=== PATIENT | female | born 1965 | race Two or more races ===

== ENCOUNTER → 2017-03-03 | Outpatient (CLI) | payer BC | END | disposition home or self-care (01) | LOC: KCIC MAMMO 08:18 | DX: Z12.31 Encounter for screening mammogram for malignant neoplasm of breast (principal) | CPT/HCPCS: 77063; 77067 ==

== ENCOUNTER → 2018-03-29 | Outpatient (CLI) | payer BC ==
[2015-03-26 19:44] VITALS: BP 127/74
[~2018-03-29] MED LIST: ACET325T9 PO; AZIT250T6 PO; DIPH25CA58 PO; FLUT16SP2 NS; PHEN1TAB PO
--- NOTE | 2018-03-29 15:19 | KCIC ---
Bilateral digital screening mammograms with 3-D tomosynthesis: Reason for examination: Routine screening. Comparison is made to previous studies dated 03/03/2017 and 02/20/2016. Bilateral mammograms in CC and oblique projections were obtained with 2-D imaging and 3-D tomosynthesis imaging on a Siemens Inspiration unit and reviewed on the workstation. Interpretation was made with the benefit of CAD. The skin and nipples show no abnormalities. No abnormal axillary lymph nodes are seen. The breast parenchyma is extremely dense. (Breast density: Category D.) There are circumscribed nodules bilaterally. These likely represent cysts with previous history of cysts in the left breast. There are no suspicious calcifications or architectural distortion. Impression: Circumscribed nodules bilaterally which probably represent systems patient with history of left breast cyst. Recommend further evaluation with ultrasound. Your patient's mammogram demonstrates that she has dense breast tissue (breast density category C or D), which could hide abnormalities, and if she has other risk factors for breast cancer that have been identified, she might benefit from supplemental screening tests that may be suggested by you as her ordering physician. Dense breast tissue, in and of itself, is a relatively common condition. Therefore, this information is not provided to cause undue concern, but rather to raise your awareness and to promote discussion with your patient regarding the presence of other risk factors, in addition to dense breast tissue. Your patient's mammography results will be sent to her. BI-RAD Category 0: Incomplete. Needs additional imaging evaluation. "Our facility is accredited by the [employer]ammography [employer]." This patient's information has been entered into a reminder system for the patient to be notified with the results of her examination and a target date for the next mammogram. Electronically signed by: Radha Estrada MD (03/29/2018 3:14 PM) [id number]
== END | disposition home or self-care (01) ==
LOC: KCIC MAMMO 11:36
PROVIDERS: ATTEND Obstetrics & Gynecology
DX: Z12.31 Encounter for screening mammogram for malignant neoplasm of breast (principal)
CPT/HCPCS: 77063; 77067

== ENCOUNTER → 2018-04-13 | Outpatient (CLI) | payer BC ==
[2015-03-26 19:44] VITALS: BP 127/74
--- NOTE | 2018-04-13 16:36 | KCIC ---
Bilateral breast ultrasound: Reason for examination: Abnormal mammogram. Follow-up exam. Comparison is made to mammographic exam dated 03/29/2018 and previous ultrasound examination dated 02/28/2016. Bilateral whole breast ultrasound including evaluation of all 4 quadrants and the retroareolar and axillary regions of both breasts was performed. In the right breast at the 11:00 position 5 cm from the nipple, there is a 1.8 cm hypoechoic circumscribed lesion with posterior acoustic enhancement which has a slightly lobulated contour. This may represent a fibroadenoma but considering the size and lobulation, further evaluation with ultrasound-guided biopsy is recommended. In the 9:30 position 6 cm from the nipple, there is a hypoechoic circumscribed lesion in parallel orientation measuring 5.6 mm in greatest dimension which also probably represents a small fibroadenoma or fibrocystic lesion with some posterior acoustic enhancement. There is some ductal ectasia. No other cystic or solid lesions are seen. No abnormal appearing lymph nodes are seen in the right axilla. In the left breast at the 2:00 position 4 cm from the nipple, there is a hypoechoic lesion which corresponds with site of previous cyst that now contains some internal echogenicity. This may represent inspissated material but recommend further evaluation with aspiration or biopsy. In the 1:30 position 5 cm from the nipple, there is a small 5.4 mm anechoic lesion consistent with a cyst. No other cystic or solid lesions are seen. No abnormal appearing lymph nodes are seen in the axilla. IMPRESSION: Solid-appearing nodule in the right breast at the 11:00 position measuring 1.8 cm in size. Recommend ultrasound-guided biopsy. Hypoechoic lesion possibly representing a cyst with inspissated material or an intracystic lesion. Recommend further evaluation with aspiration/biopsy. BI-RADS Category 4: Suspicious. These findings have been discussed with the patient and the patient's physician, Sylvie Trevino's office, was called about these findings by myself on 04/13/2018 at 12:20 PM and 4:22 PM and was unable to reach anybody to relay these findings to. We'll call again tomorrow. "Our facility is accredited by the [employer] Mammography [employer]." This patient's information has been entered into a reminder system for the patient to be notified with the results of her examination and a target date for the next mammogram. Electronically signed by: Radha Estrada MD (04/13/2018 4:34 PM) [facility]
== END | disposition home or self-care (01) ==
LOC: KCIC US 10:45
PROVIDERS: ATTEND Obstetrics & Gynecology
DX: N64.89 Other specified disorders of breast (principal)
CPT/HCPCS: 76641

== ENCOUNTER → 2019-08-18 | Outpatient (CLI) | payer BC ==
[2015-03-26 19:44] VITALS: BP 127/74
--- NOTE | 2019-08-18 13:26 | RAD ---
DATE: 08/18/2019 11:36 AM EXAM: BREAST BILATERAL, MAMMO MIKE DIAG BILAT HISTORY: 54 year old woman due for mammographic screening presents for imaging follow up of bilateral breast masses she reports have been present and unchanged for 13 years. At the last imaging appointment, she had been recommended for biopsy of a mass in the right breast, and aspiration or biopsy of a mass in the left breast. She elected a surgical consult and after consulting with Dr. Porter, elected to pursue clinical and imaging follow up in lieu of biopsy. COMPARISON: 2-D mammograms of 11/24/2011, 12/16/2012, 01/03/2014 and 02/06/2015 as well as 02/20/2016 along with the 3-D mammograms of 03/03/2017 and 03/29/2018. Limited left breast ultrasound of 02/28/2016 was also reviewed. TECHNIQUE: Bilateral CC and MLO views of the breasts were performed. Bilateral breast tomosynthesis was performed in CC and MLO projections. Study was reviewed with computer-aided detection. Thereafter, targeted ultrasound of the areas of prior sonographic interest at the right 11:00 5 cm from the nipple and at the left 2:00 4 cm from the nipple was performed in addition to sonographic survey of the bilateral axillary FINDINGS: Breast Density: HETERO The breast parenchyma Is heterogeneously dense, which could reduce sensitivity of mammography. Breast parenchyma level C Right breast on 3-D mammography shows a circumscribed oval 1.6 cm isodense mass anterior and superiorly, unchanged in size from at least 2018. This correlates with the mass seen on ultrasound recommended for biopsy. No developing mass, suspicious calcification or architectural distortion. Targeted ultrasound of the right breast shows no interval change in the parallel orientation oval circumscribed solid 1.6 cm mass seen on prior ultrasound. This mass shows posterior acoustic enhancement and no internal vascularity. Sonographic survey right axilla reveals no adenopathy. Left breast on 3D mammogram also shows a circumscribed oval isodense 1.8 cm circumscribed mass in the anterior slightly lateral left breast that correlates with the mammographic finding from at least 2 years ago. No developing mass, suspicious calcification or architectural distortion. Targeted ultrasound of the left breast at the 2:00 position 4 cm from the nipple confirms the presence of an oval circumscribed solid mass with no significant change from the prior ultrasound of 2016. Sonographic survey left axilla reveals no adenopathy. IMPRESSION: Benign findings in both breasts on mammogram and ultrasound with no evidence of malignancy. BI-RADS CATEGORY: 2 BENIGN FINDING(S) RECOMMENDED FOLLOW-UP: 12M 12 MONTH FOLLOW-UP Annual screening mammography is recommended, unless clinically indicated sooner based on symptoms or change in physical exam. Discussed with patient. PQRS compliance statement: Patient information was entered into a reminder system with a target due date 08/18/2020 for the next mammogram. Mammography is a sensitive method for finding small breast cancers, but it does not detect them all and is not a substitute for careful clinical examination. A negative mammogram does not negate a clinically suspicious finding and should not result in delay in biopsying a clinically suspicious abnormality. "Our facility is accredited by the [employer] Mammography [employer]."
== END | disposition home or self-care (01) ==
LOC: MAMMO 09:46
PROVIDERS: ATTEND Obstetrics & Gynecology
DX: R91.1 Solitary pulmonary nodule (principal); N64.89 Other specified disorders of breast
CPT/HCPCS: 76641; 77066; G0279; 77062

== ENCOUNTER → 2020-09-18 | Outpatient (CLI) | payer BC ==
[2015-03-26 19:44] VITALS: BP 127/74
--- NOTE | 2020-09-18 18:12 | RAD ---
DATE: 09/18/2020 EXAM: MAMMO MIKE DIAG BILAT, BREAST BILATERAL HISTORY: Diagnostic mammogram. Bilateral breast masses for many years. Biopsy recommended of bilateral breast masses in 2019 but declined. History of left cyst aspiration. COMPARISON: 08/18/2019, 04/13/2018, 03/29/2018, 03/03/2017, 02/28/2016, 02/20/2016 This study was interpreted with the benefit of Computerized Aided Detection (CAD). Breast Density: HETERO The breast parenchyma is heterogenously dense, which could reduce sensitivity of mammography. Breast parenchyma level C. FINDINGS: Mammogram: There is an unchanged 1.8 cm circumscribed mass in the left breast at 2:00, 3 cm from the nipple. A 2.5 cm circumscribed mass in the upper outer left breast 4 cm posterior to the nipple is new or larger than on the prior mammogram. A 1.6 cm circumscribed mass in the right breast at 12:00 3-4 cm posterior to the nipple is unchanged. No suspicious calcifications or architectural distortion in either breast. Ultrasound: Right breast: At 12:00, 4 cm from the nipple, there is a 1.7 x 1.4 x 1.2 cm ovoid circumscribed hypoechoic mass with posterior acoustic enhancement. This is unchanged from 08/18/2019 and 04/13/2018. At 9:00, 5 cm the nipple, there is a 5 x 4 x 4 mm ovoid hypoechoic mass, previously 6 x 5 x 3 mm on 04/13/2018. There is no lymphadenopathy in the right axilla. Left breast: At 2:00, 4 cm from the nipple, there is a 1.8 x 1.5 x 1.3 cm ovoid circumscribed hypoechoic mass. This is unchanged from 04/13/2018 and is similar appearance to the right breast mass. At 1:30, 5 cm from the nipple, there is a 2 x 1.1 x 2.1 cm anechoic circumscribed simple cyst with through transmission. This corresponds with a fluctuating simple cyst that measures 0.5 x 0.4 x 0.6 cm on 04/13/2018 and 2.6 x 2.5 x 1.2 cm on 12/04/2010. There is no lymphadenopathy in the left axilla. IMPRESSION: 1. Multiple bilateral masses including a 1.7 cm hypoechoic mass at 12:00 in the right breast and a 1.8 cm hypoechoic mass at 2:00 in the left breast. These have been stable by mammogram and ultrasound for over 2 years (since 04/13/2018) and are therefore considered benign. Recommend annual screening mammogram. 2. 2 cm fluctuating simple cyst at 1:30 in the left breast. BI-RADS CATEGORY: 2 BENIGN FINDING(S) RECOMMENDED FOLLOW-UP: 12M 12 MONTH FOLLOW-UP PQRS compliance statement: Patient information was entered into a reminder system with a target due date for the next mammogram. Mammography is a sensitive method for finding small breast cancers, but it does not detect them all and is not a substitute for careful clinical examination. A negative mammogram does not negate a clinically suspicious finding and should not result in delay in biopsying a clinically suspicious abnormality. "Our facility is accredited by the [employer] Mammography [employer]."
== END ==
LOC: MAMMO 13:08
PROVIDERS: ATTEND Specialist
DX: N63.23 Unspecified lump in the left breast, lower outer quadrant (principal); N63.41 Unspecified lump in right breast, subareolar
CPT/HCPCS: 76641; 77066; G0279; 77062